=== PATIENT | male | born 1955 | race Caucasian/White ===

== ENCOUNTER 2020-09-16 11:58 | Outpatient (CLI) | payer OTHER | END 2020-09-16 12:05 | disposition home or self-care (01) | LOC: RAD 11:58 | PROVIDERS: ATTEND Orthopaedic Surgery | DX: M75.22 Bicipital tendinitis, left shoulder (principal); M75.21 Bicipital tendinitis, right shoulder ==

== ENCOUNTER 2021-04-30 12:24 | Outpatient (CLI) | payer OTHER | END 2021-04-30 12:29 | disposition home or self-care (01) | LOC: RAD 12:24 | PROVIDERS: ATTEND Orthopaedic Surgery | DX: M75.122 Complete rotator cuff tear or rupture of left shoulder, not specified as traumatic (principal); M75.42 Impingement syndrome of left shoulder ==

== ENCOUNTER 2021-06-04 15:21 | Outpatient (CLI) | payer OTHER | END 2021-06-04 15:22 | disposition home or self-care (01) | LOC: RAD 15:21 | PROVIDERS: ATTEND Specialist | DX: J18.0 Bronchopneumonia, unspecified organism (principal) ==

== ENCOUNTER 2021-10-15 13:40 | Outpatient (CLI) | payer OTHER | END 2021-10-15 13:47 | disposition home or self-care (01) | LOC: TOM 13:40 | PROVIDERS: ATTEND Specialist | DX: C67.0 Malignant neoplasm of trigone of bladder (principal) ==

== ENCOUNTER 2022-12-27 10:08 | Outpatient (CLI) | payer OTHER | END 2022-12-27 10:11 | disposition home or self-care (01) | LOC: RAD 10:08 | PROVIDERS: ATTEND Surgery Surgery of the Hand | DX: Z01.89 Encounter for other specified special examinations (principal) ==